=== PATIENT | male | born 1965 | race Caucasian/White ===

== ENCOUNTER 2017-01-24 17:18 | Inpatient (IN) | payer SELFPAY ==
[~2017-01-24] VITALS: Ht 157.5 cm; Wt 81.7 kg
[2017-01-24] MEDS ORDERED: TDAP DIPH,PERTUSS,TET VAC/PF 0.5 ML DISP.SYRIN IM ONE ×2 (19:15→19:49)
[2017-01-24] MEDS ORDERED: HYDROCODONE/APAP 5-325MG TABLET PO ONE (19:15)
--- NOTE | 2017-01-24 19:20 | NUR ---
Received report from MATTI Hutchins. Assumed care of pt at this time. MD at bedside, awaiting further orders.
[2017-01-24] MEDS ORDERED: HYDROCODONE/APAP 5-325MG TABLET ONE (19:49)
--- NOTE | 2017-01-24 20:05 | NUR ---
Pt medicated for pain, will monitor for effects of medication. Pt resting in position of comfort for self. Family at bedside.
--- NOTE | 2017-01-24 22:00 | NUR ---
Pt sts he is starting to feel better. Pt to be admitted. Admission pending.
--- NOTE | 2017-01-24 23:30 | NUR ---
Pt no complaints at this time. Soft cervical collar in place. Report called to MATTI Desir. Preparing to transfer pt to the floor.
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
[2017-01-25 00:30] VITALS: BP 111/83
[2017-01-25] MEDS ORDERED: Z GUARD REMEDY PASTE 57 GM TUBE TOP PRN (03:00)
[2017-01-25] MEDS ORDERED: ONDANSETRON 4 MG/2 ML VIAL IV PRN (03:00)
[2017-01-25] MEDS ORDERED: ZOLPIDEM 5 MG TABLET PO PRN (03:00)
[2017-01-25] MEDS ORDERED: HYDROCODONE/APAP 5-325MG TABLET PO PRN (03:00)
[2017-01-25] MEDS ORDERED: MAGNESIUM HYDROXIDE 30 ML LIQUID UDC PO PRN (03:00)
[2017-01-25] MEDS ORDERED: ACETAMINOPHEN 325 MG TABLET PO PRN (03:00)
[2017-01-25 04:00] VITALS: BP 112/85
--- NOTE | 2017-01-25 06:48 | NUR ---
PT IN BED, SLEEPING, AROUSABLE TO TOUCH, AT BEDSIDE. IN ACUTE SIGNS OF DISTRESS. SAFETY MAINTAINED THROUGHOUT THE NIGHT. CALL LIGHT WITHIN REACH.
[2017-01-25] MEDS: PANTOPRAZOLE SODIUM 40 MG TABLET.DR PO SCH (08:01)
[2017-01-25 11:26] VITALS: BP 110/76
[2017-01-25 12:07] LABS: BASOPHILS # (AUTO) 0.2 K/uL (0.0-8.0); BASOPHILS % (AUTO) 1.7 % (0.0-2.0); EOSINOPHILS # (AUTO) 0.2 K/uL (0.0-0.7); EOSINOPHILS % (AUTO) 2.5 % (0.0-7.0); HEMATOCRIT 45.1 % (40-50); HEMOGLOBIN 14.9 G/DL (14.0-18.0); LYMPHOCYTES # (AUTO) 2.9 K/UL (0.8-4.8); LYMPHOCYTES % (AUTO) 31.5 % (20.5-51.5); MEAN CORPUSCULAR HEMOGLOBIN 27.1 UUG (27.0-31.0); MEAN CORPUSCULAR HGB CONC 33 g/dL (32.0-37.0); MONOCYTES # (AUTO) 0.8 K/UL (0.1-1.30); MONOCYTES % (AUTO) 8.3 % (0.0-11.0); NEUTROPHILS # (AUTO) 5.2 K/UL (1.8-8.9); PLATELET COUNT (AUTO) 249 K/UL (150-450); WHITE BLOOD COUNT (AUTO) 9.3 K/UL (4.0-11.2)
[2017-01-25 13:07] LABS: BILIRUBIN,TOTAL 0.6 mg/dL (0.2-1.0); CREATININE 1.9 mg/dL (0.6-1.3); MAGNESIUM 2.1 mg/dL (1.8-2.4); PHOSPHOROUS 3.4 mg/dL (2.5-4.9); TOTAL PROTEIN, SERUM 7.2 g/dL (6.4-8.2)
[2017-01-25] MEDS ORDERED: CYCLOBENZAPRINE HCL 10 MG TABLET PO PRN (14:30)
[2017-01-25] MEDS: IV 1/2NS 1000 ML 1,000 ML IV PRN (14:44)
[2017-01-25 15:07] VITALS: BP_SYST 110; BP_SYST 119; BP_DIAS 76; BP_DIAS 87
--- NOTE | 2017-01-25 18:12 | NUR ---
PATIENT BEEN IN BED AWAKE WATCHING TV. NO S/S OF DISTRESS NOTED. DENIED PAIN DURING MY SHIFT. NEURO CHECKS WAS DONE, EVERYTHING WNL. NO C/O OF DIZZINESS, HEADACHES. NEW IV WAS STARTED ON THE RIGHT FA #20, FLUIDS ARE RUNNING NOW. PATIENT HAVE BEEN URINATING NORMALLY. 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 SAFETY AND COMFORT PROVIDED BY STAFF. WILL CONTINUE MONITORING.
[2017-01-25 19:00] VITALS: BP 123/77
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
[2017-01-26] MEDS: IV 1/2NS 1000 ML 1,000 ML IV PRN ×2 (01:01→11:51)
[2017-01-26 04:00] VITALS: BP 115/75
[2017-01-26 05:16] LABS: *BILIRUBIN,URIN NEGATIVE (NEGATIVE); *BLOOD, URINE NEGATIVE (NEGATIVE); *CLARITY,URINE CLEAR (CLEAR); *COLOR,URINE STRAW (YELLOW); *KETONES,URINE NEGATIVE (NEGATIVE); *PROTEIN,URINE NEGATIVE (NEGATIVE); *UROBILINOGEN,URINE 0.2 E.U./dl (NORMAL); LEUKOCYTE ESTERASE ,URINE NEGATIVE (NEGATIVE); NITRITE, URINE NEGATIVE (NEGATIVE); PH,URINE 6.5 (5.0-8.0); UGLUCOSE NEGATIVE (NEGATIVE)
[2017-01-26 05:26] LABS: BACTERIA,URINE NONE SEEN /HPF (NONE SEEN); RBC,URINE NONE SEEN /HPF (0-3); SQUAMOUS EPITHELIAL CELL,UR NONE SEEN /HPF (NONE SEEN); WBC,URINE NONE SEEN /HPF (0-3)
--- NOTE | 2017-01-26 06:00 | NUR ---
PT'S COMFORTABLE ON BED;DENIED OF PAIN AT THIS TIME,NO NEURO-DEFICIT NOTED.NO INFILTRATION AT THE IV SITE.NO DISTRESS NOTED IN THE SHIFT.KEPT COMFORT.CALL-LIGHT WITHIN REACH.
[2017-01-26] MEDS: PANTOPRAZOLE SODIUM 40 MG TABLET.DR PO SCH (06:24)
[2017-01-26 06:25] LABS: BASOPHILS # (AUTO) 0.1 K/uL (0.0-8.0); BASOPHILS % (AUTO) 0.8 % (0.0-2.0); EOSINOPHILS # (AUTO) 0.2 K/uL (0.0-0.7); EOSINOPHILS % (AUTO) 2.7 % (0.0-7.0); HEMATOCRIT 42.8 % (40-50); HEMOGLOBIN 14.5 G/DL (14.0-18.0); LYMPHOCYTES # (AUTO) 2.2 K/UL (0.8-4.8); LYMPHOCYTES % (AUTO) 24.5 % (20.5-51.5); MEAN CORPUSCULAR HGB CONC 34 g/dL (32.0-37.0); MEAN CORPUSCULAR VOLUME 82.6 FL (82.0-92.0); MONOCYTES # (AUTO) 0.7 K/UL (0.1-1.30); MONOCYTES % (AUTO) 7.8 % (0.0-11.0); NEUTROPHILS # (AUTO) 5.7 K/UL (1.8-8.9); NEUTROPHILS % (AUTO) 64.2 % (38.5-71.5); PLATELET COUNT (AUTO) 238 K/UL (150-450); RED BLOOD CELL COUNT(AUTO) 5.19 MIL/UL (4.7-6.1); WHITE BLOOD COUNT (AUTO) 8.9 K/UL (4.0-11.2)
[2017-01-26 06:34] LABS: MAGNESIUM 1.9 mg/dL (1.8-2.4); PHOSPHOROUS 3.3 mg/dL (2.5-4.9); POTASSIUM 4.1 mmol/L (3.5-5.1)
[2017-01-26 06:44] LABS: THYROID STIMULATING HORMONE 1.137 mIU/mL (0.358-3.740)
[2017-01-26] MEDS ORDERED: INSULIN REGULAR, HUMAN 300 UNIT/3 ML VIAL SQ PRN (10:00)
[2017-01-26] MEDS ORDERED: FENOFIBRATE NANOCRYSTALLIZED 48 MG TABLET PO SCH (10:00)
[2017-01-26] MEDS ORDERED: DEXTROSE 50% 50 ML DISP.SYRIN IV PRN (10:00)
[2017-01-26 11:41] VITALS: BP 97/62
[2017-01-26] MEDS: BLOOD SUGAR DIAGNOSTIC 1 EACH STRIP VI SCH ×2 (11:45→16:36)
[2017-01-26] MEDS ORDERED: LORATADINE 10 MG TABLET PO SCH (11:45)
[2017-01-26] MEDS ORDERED: FENO48TA PO (13:20)
[2017-01-26] MEDS ORDERED: HYDR-3326 PO (13:20)
[2017-01-26] MEDS ORDERED: LORA-114 PO ×2 (13:20→13:25)
[2017-01-26] MEDS ORDERED: CYCL10TA9 PO (13:20)
[2017-01-26 14:45] VITALS: BP 124/86
--- NOTE | 2017-01-26 15:57 | NUR ---
PATIENT BEEN DISCHARGE BY JYOTI SUAREZ AFTER ULTRASOUND RESULTS ARE REVIEW. DR. CAMACHO ORDERED URINE SPECIMEN, IT WAS COLLECTED AND SENT IT LAB. PATIENT BEEN IN BED RESTING. NO S/S OF DISTRESS NOTED. PICTURES WERE TAKEN AND PLACED ON THE CHART. AT THE BEDSIDE. SAFETY AND COMFORT PROVIDED. WILL CONTINUE MONITORING.
[2017-01-26 16:14] LABS: *BILIRUBIN,URIN NEGATIVE (NEGATIVE); *BLOOD, URINE NEGATIVE (NEGATIVE); *CLARITY,URINE CLEAR (CLEAR); *COLOR,URINE YELLOW (YELLOW); *KETONES,URINE NEGATIVE (NEGATIVE); *PROTEIN,URINE NEGATIVE (NEGATIVE); *UROBILINOGEN,URINE 0.2 E.U./dl (NORMAL); LEUKOCYTE ESTERASE ,URINE TRACE (NEGATIVE); NITRITE, URINE NEGATIVE (NEGATIVE); UGLUCOSE NEGATIVE (NEGATIVE)
[2017-01-26 16:16] LABS: *CREATININE,URINE 13.7 mg/dL (30-125)
[2017-01-26 16:21] LABS: RBC,URINE 0-3 /HPF (0-3)
[2017-01-26 16:22] LABS: BACTERIA,URINE NONE SEEN /HPF (NONE SEEN); SQUAMOUS EPITHELIAL CELL,UR FEW /HPF (NONE SEEN); WBC,URINE 0-3 /HPF (0-3)
[2017-01-26 16:23] LABS: *URINE TOTAL PROTEIN RANDOM < 6.0 mg/dL (<150/24HR)
--- NOTE | 2017-01-26 17:53 | NUR ---
PATIENT WAS CLEAR BY HUSSAIN SUAREZ AFTER REVIEWING US. NO S/S OF DISTRESS NOTED. DENIED PAIN IN URINATIONS OR ANY PROBLEMS URINATING DURING MY SHIFT. PATIENT HAVE BEEN GOING TO THE BATHROOM TO VOID REGULARLY. DISCHARGE INSTRUCTIONS WERE EXPLAINED, EDUCATION ABOUT TRIGLYCERIDES AND DIABETES WAS EXPLAINED AND GIVEN TO PATIENT, WELL PRESCRIPTIONS. ID BAND AND IV REMOVED. BS CONTROLLED. SAFETY AND COMFORT PROVIDED BY STAFF. PATIENT WENT HOME WITH FAMILY.
== END 2017-01-26 17:53 | disposition home or self-care (01) | DRG 914 ==
LOC: ER 17:19 → MED 21:50
PROVIDERS: ADMIT Internal Medicine; ATTEND Internal Medicine
DX: S09.8XXA Other specified injuries of head, initial encounter (principal); N17.9 Acute kidney failure, unspecified; V53.5XXA Driver of pick-up truck or van injured in collision with car, pick-up truck or van in traffic accident, initial encounter; Y93.9 Activity, unspecified; Y92.410 Unspecified street and highway as the place of occurrence of the external cause; S80.212A Abrasion, left knee, initial encounter; F17.210 Nicotine dependence, cigarettes, uncomplicated; E11.9 Type 2 diabetes mellitus without complications; E78.1 Pure hyperglyceridemia
CPT/HCPCS: 36415; 70030-TC; 70450; 71010; 72125; 76770; 83735; 84100; 84156; 84300; 84443; 85025; 87086; 90715; A4663; J1815; J3490